=== PATIENT | female | born 1945 ===

== ENCOUNTER 2023-08-04 08:47 | Observation (INO) ==
[~2023-08-04 08:47] MED LIST: Buffered Lidocaine 1% SYRIN 1 ml INTRADERM ONE; HYDROcodone/ACETAMIN 5/325 mg TAB PO PRN; Lactated Ringers 1000 ml BAG 1,000 ML IV SCH; Metoclopramide 5 MG/ML VIAL (10 mg) IV PRN; Naloxone 0.4 mg VIAL 0.4 mg/ml 1 ml VIAL IV PRN; Ondansetron 4 mg VIAL 2 MG/ML 2 ml VIAL IV PRN; fentaNYL 100 mcg/2 ml 50 MCG/ML VIAL IV PRN
[2023-08-04] MEDS ORDERED: Lidocaine 2% PF 5 ML VIAL ONE (09:15)
[2023-08-04] MEDS ORDERED: Propofol 10 MG/ML 20 ML BTL ONE ×2 (09:15→12:16)
[2023-08-04] MEDS ORDERED: Tranexamic Acid 1 GM/100ML BAG 2,000 MG/200 ML BAG IV ONE (09:24)
[2023-08-04] MEDS ORDERED: Buffered Lidocaine 1% SYRIN 1 ml ONE (09:24)
[2023-08-04] MEDS ORDERED: ceFAZolin 2 GM PREMIX 2 GM/50 ML BAG ONE (09:24)
[2023-08-04 09:50] LABS: Rapid COVID-19 Molecular Undetected (Undetected)
[2023-08-04] MEDS ORDERED: Midazolam 2 mg/2 ml VIAL 1 mg/ml 2 ml VIAL (2 mg) ONE (10:47)
[2023-08-04] MEDS ORDERED: ROPIVACAINE 5 MG/ML 30 ML BTL (0.5%) ONE (11:31)
[2023-08-04] MEDS ORDERED: Glycopyrrolate IV 0.2 MG/ML 1 ML VIAL ONE (12:24)
[2023-08-04] MEDS ORDERED: KETAMINE HCL 10 MG/ML 20 ml VIAL (200 MG) ONE (12:26)
[2023-08-04] MEDS ORDERED: Esmolol 10 MG/ML 10 ML (100 mg) IV ONE (12:29)
[2023-08-04] MEDS ORDERED: HYDROcodone/ACETAMIN 5/325 mg TAB ONE (14:28)
[2023-08-04] MEDS ORDERED: Ondansetron 4 mg VIAL 2 MG/ML 2 ml VIAL IV PRN (14:30)
[2023-08-04] MEDS ORDERED: Morphine 2 MG/ML SYRINGE IV PRN (14:30)
[2023-08-04] MEDS ORDERED: Ondansetron ODT 4 mg TAB 4 MG TAB PO PRN (14:30)
[2023-08-04] MEDS ORDERED: Lactulose 30 ml UDC PO PRN (14:30)
[2023-08-04] MEDS ORDERED: Magnesium Hydroxide LIQ 30 ML UDC PO PRN (14:30)
[2023-08-04] MEDS: Lactated Ringers 1000 ml BAG 1,000 ML IV SCH ×2 (15:31→21:10)
[2023-08-04] MEDS ORDERED: hydrALAZINE 20 mg/ml 1 ML Vial IV IV SLOW PU PRN (16:35)
[2023-08-04] MEDS ORDERED: Lactated Ringers 1000 ml BAG 1,000 ML IV SCH (18:00)
[2023-08-04] MEDS: Magnesium Hydroxide LIQ 30 ML UDC PO SCH (21:06)
[2023-08-04] MEDS: ceFAZolin 1 GM ADVAN 1 GM in NS 0.9% 50 ML 50 ML IVPB SCH (21:12)
[2023-08-05] MEDS: ceFAZolin 1 GM ADVAN 1 GM in NS 0.9% 50 ML 50 ML IVPB SCH ×2 (04:17→12:17)
[2023-08-05 06:58] LABS: Hemoglobin 11.7 g/dL (11.5-14.3); Mean Platelet Volume 9.7 fL (7.5-11.2); Platelet Count 173 10^3/uL (150-450)
[2023-08-05 07:33] LABS: Calcium 8.5 mg/dL (8.6-10.3); Creatinine, Serum 0.91 mg/dL (0.51-0.95); Potassium 3.3 mmol/L (3.5-5.0); eGFR CKD-EPI 63.8 (>60)
[2023-08-05] MEDS: Lactated Ringers 1000 ml BAG 1,000 ML IV SCH ×2 (07:42→21:33)
[2023-08-05] MEDS: Vitamin THERAPEUTIC TAB PO SCH (08:06)
[2023-08-05] MEDS: Magnesium Hydroxide LIQ 30 ML UDC PO SCH ×2 (08:08→21:29)
[2023-08-05] MEDS ORDERED: Influenza vaccine *QUAD* *2023-24* 0.5 ML SYRINGE IM ONE (09:00)
[2023-08-05] MEDS: Potassium Chlor 20 meq TAB.ER PO SCH (09:38)
[2023-08-06 09:03] LABS: Hematocrit 35.7 % (35-45); Mean Platelet Volume 9.8 fL (7.5-11.2); Platelet Count 179 10^3/uL (150-450)
[2023-08-06] MEDS: Potassium Chlor 20 meq TAB.ER PO SCH (09:16)
[2023-08-06] MEDS: Vitamin THERAPEUTIC TAB PO SCH (09:17)
[2023-08-06] MEDS: Magnesium Hydroxide LIQ 30 ML UDC PO SCH (09:18)
[2023-08-06 09:55] VITALS: BP 109/70
== END 2023-08-06 12:30 | disposition home or self-care (01) ==
LOC: AA 08:47 → INTOOBSV 08:47 → SSU 14:31
PROVIDERS: ADMIT Orthopaedic Surgery Adult Reconstructive Orthopaedic Surgery; ATTEND Orthopaedic Surgery Adult Reconstructive Orthopaedic Surgery